=== PATIENT | female | born 1975 | race Caucasian/White ===

== ENCOUNTER 2024-09-24 11:11 | Emergency (ER) | payer OTHER ==
[2024-09-24 11:18] VITALS: BP 105/70; PULSE 85; RESP 18; TEMP 100.4; BMI 28.3
[2024-09-24] MEDS ORDERED: ACETAMINOPHEN 500 MG TABLET (FP) ONE (11:56)
[2024-09-24] MEDS: ACETAMINOPHEN 500 MG TABLET (FP) PO ONE (11:57)
[2024-09-24 14:13] LABS: HIV INTERPRETATION NEGATIVE (NEGATIVE)
== END 2024-09-24 13:32 | disposition home or self-care (01) ==
LOC: FER 11:11
DX: J98.8 Other specified respiratory disorders (principal); R50.9 Fever, unspecified; R07.89 Other chest pain; R05.9 Cough, unspecified; J10.1 Influenza due to other identified influenza virus with other respiratory manifestations; Z20.822 Contact with and (suspected) exposure to COVID-19
CPT/HCPCS: 0241U-QW; 36415; 71046-TC-FY; 86803; 87389; 87651; 99284-25